=== PATIENT | male | born 1950 | race Caucasian/White ===

== ENCOUNTER 2017-11-01 13:00 | Outpatient (CLI) | payer MEDICARE, OTHER ==
[~2017-11-01 13:00] MED LIST: ALLO300T2 GT; LOSA100T16 PO; NAPR220C11 PO; OMEP-10 PO
== END 2017-11-01 13:35 | disposition home or self-care (01) ==
LOC: SLEEP 13:00
PROVIDERS: ATTEND Nurse Practitioner Family
DX: G47.10 Hypersomnia, unspecified (principal)

== ENCOUNTER 2018-04-21 15:13 | Emergency (ER) | payer OTHER | END 2018-04-21 17:17 | disposition home or self-care (01) | LOC: ER 15:13 ==

== ENCOUNTER → 2018-10-12 | Outpatient (CLI) | payer OTHER | LOC: CARD 07:11 | PROVIDERS: ATTEND Internal Medicine | DX: R07.9 Chest pain, unspecified (principal); R55 Syncope and collapse | CPT/HCPCS: 93017 ==

== ENCOUNTER → 2018-12-21 | Outpatient (CLI) | payer OTHER ==
--- NOTE | 2018-12-21 13:54 | Diagnostic Imaging Report ---
INDICATION: PSVT ARTERIAL DEFIB FAMILY HX SARCOIDOSIS COMPARISON: None. FINDINGS: Frontal and lateral views of the chest demonstrate normal heart size and pulmonary vascularity. The lungs are clear. There are no signs of infiltrate, pleural effusions or pneumothoraces. The visualized osseous structures show no acute abnormalities. IMPRESSION: 1. No acute process. No signs of infiltrates, effusions or pneumothoraces. Dictated by: Dictated on workstation # [id number]
== END ==
LOC: RAD 13:19
PROVIDERS: ATTEND Internal Medicine
DX: I48.91 Unspecified atrial fibrillation (principal); I47.1 Supraventricular tachycardia; Z84.89 Family history of other specified conditions
CPT/HCPCS: 71046

== ENCOUNTER 2021-10-11 19:17 | Emergency (ER) | payer MEDICARE, OTHER ==
[~2021-10-11] VITALS: Ht 187 cm; Wt 97.5 kg
[2021-10-11] MEDS ORDERED: TETANUS,DIPTH,PERTUSS P/F (BOOSTRIX) 0.5 ML VIAL IM ONE (19:45)
--- NOTE | 2021-10-11 19:52 | ED Fall/Injury ---
General Chief Complaint: Trauma-Non Activation Stated Complaint: FALL/L SIDE RIB PAIN/L THIGH PAIN Source: patient, family Exam Limitations: no limitations History of Present Illness Date Seen by Provider: Oct 11, 2021 Time Seen by Provider: 19:30 Initial Comments Here with report to have a fall today while walking his dog. Occurred about an hour ago. States he got tangled up with his dog and then fell onto his left side. States he felt like his arm and elbow pushed into his ribs and has left rib pain. Also has abrasions to left elbow and left knee. He is on Xarelto. Denies hitting his head or loss of consciousness but admits to being heriberto around significantly. Has left hip pain but is able to walk with some pain. States he feels like he has a muscle bruise at the area of the left hip. Denies nausea or vomiting. Denies other injury. Tetanus is not up-to-date Occurred: this evening Severity: moderate Injuries/Pain Location: chest, pelvis Context: tripped Loss of Consciousness: no loss of consciousness Modifying Factors: Worse With Movement; Improves With Rest Associated Symptoms (Fall): No Abdominal Pain, No Chest Pain, No Confusion, No Dizziness, No Headache; Muscle Spasms; No Nausea/Vomiting, No Neck Pain, No Shortness of Air; Other (Pain with deep breathing) Allergies and Home Medications Allergies Coded Allergies: No Known Drug Allergies (Unverified , 12/14/13) Patient Home Medication List Home Medication List Reviewed: Yes Allopurinol (Zyloprim Tablet) 300 Mg Tab, 300 MG GT DAILY, (Reported) Entered as Reported by: JIM GALVAN on 12/14/13 1025 Losartan Potassium (Cozaar) 100 Mg Tablet, 1 EACH PO DAILY, (Reported) Entered as Reported by: JIM GALVAN on 12/14/13 1023 Naproxen Sodium (Aleve) 220 Mg Capsule, 220 MG PO for PAIN, (Reported) Entered as Reported by: JIM GALVAN on 12/14/13 1025 Omeprazole (Prilosec 20 Mg) 20 Mg Capsule.dr, 20 MG PO DAILY, (Reported) Entered as Reported by: JIM GALVAN on 12/14/13 1025 Review of Systems Review of Systems Constitutional: see HPI; No chills, No fever Eyes: No Symptoms Reported Ears, Nose, Mouth, Throat: no symptoms reported Respiratory: No cough, No short of breath; other (Pain with deep breathing and pain to the left side of the chest) Cardiovascular: chest pain (Left chest wall pain); No edema, No palpitations Gastrointestinal: No abdominal pain, No nausea, No vomiting Genitourinary: no symptoms reported Musculoskeletal: joint pain, muscle pain Skin: change in color, lesions Psychiatric/Neurological: Denies Headache, Denies Weakness All Other Systems Reviewed Negative Unless Noted: Yes Past Jgeqjrn-Rfarug-Lebkik Hx Patient Social History Tobacco Use?: No Substance use?: No Alcohol Use?: No Immunizations Up To Date Influenza Vaccine Up-to-Date: Yes; Up-to-Date Past Medical History Surgery/Hospitalization HX: a fib, HTN Surgeries: Yes (HERNIA) Abdominal, Tonsillectomy Respiratory: No Cardiac: Yes Hypertension Neurological: No Gastrointestinal: No Musculoskeletal: Yes (GOUT) Endocrine: No Glaucoma Cancer: No Psychosocial: No Integumentary: No Family Medical History Reviewed Nursing Family Hx No Pertinent Family Hx Physical Exam Vital Signs Vital Signs - First Documented 10/11/21 19:28 Temp 37.0 Pulse 64 Resp 18 B/P (MAP) 158/88 (111) Pulse Ox 98 O2 Delivery Room Air Capillary Refill : Height, Weight, BMI Height: 6'2.00" Weight: 240lbs. oz. 108.480050ki; BMI Method:Stated General Appearance: WD/WN, mild distress HEENT: PERRL/EOMI, TMs normal, pharynx normal Neck: non-tender, full range of motion, supple Cardiovascular: regular rate, rhythm, no murmur Respiratory: lungs clear, normal breath sounds, other (Tender to the left chest wall lateral aspect) Gastrointestinal: non tender, soft Back: normal inspection, no CVA tenderness, no vertebral tenderness Extremities: non-tender, normal inspection Neurologic/Psychiatric: alert, oriented x 3 Skin: normal color, warm/dry [place] Coma Score Best Eye Response: (4) Open Spontaneously Best Verbal Response: (5) Oriented Best Motor Response: (6) Obeys Commands Progress/Results/Core Measures Results/Orders My Orders Orders - NAY STANLEY MD Pelvis With Left Hip 2-3 Views (10/11/21 19:43) Ct Chest Wo (10/11/21 19:43) Ct Head Wo (10/11/21 19:43) Dipht,Pertuss(Acell),Tet Adult (Boostrix (10/11/21 19:45) Medications Given in ED Current Medications Medications Dose Ordered Sig/Iva Route Start Time Stop Time Status Last Admin Dose Admin Diphtheria/ Tetanus/Acell Pertussis 0.5 ml ONCE ONCE IM 10/11/21 19:45 10/11/21 19:46 DC 10/11/21 20:32 0.5 ML Vital Signs/I&O 10/11/21 19:28 Temp 37.0 Pulse 64 Resp 18 B/P (MAP) 158/88 (111) Pulse Ox 98 O2 Delivery Room Air Progress Progress Note : Progress Note Seen and evaluated. We will get CT of the head due to patient being on Xarelto and significant fall. Also get CT of the chest due to left chest wall pain and also on Xarelto. We will get x-ray of the left hip and pelvis. Tetanus to be updated. Patient declined pain medicine. Monitor patient. 2058: X-rays reviewed. Fourth rib fracture noted. CT of the head does not show any acute intracranial hemorrhage and x-ray of left hip and pelvis show no acute fracture. I did discuss with him regarding the rib fracture. We will do incentive spirometer teaching and give him an incentive spirometer. Hydrocodone 5/325 1 tab p.o. ordered. Small cystic structure on kidney discussed with patient. He is to follow-up with Dr. Fuentes for recheck and further evaluation of that and outpatient ultrasound as indicated. He and his both verbalized understanding and I will send a copy of the chart to Dr. Fuentes. Discharged home with return precautions. Patient verbalized understanding of instructions and agreement with plan. Diagnostic Imaging Diagonstic Imaging: CT Plain Films/CT/US/NM/MRI: chest Comments [facility]. [place], [place] NAME: ROSEMARY MABRY MED REC#: [id number] PT STATUS: REG ER : 1950 PHYSICIAN: NAY STANLEY MD ADMIT DATE: 10/11/21/ER Draft Date of Exam:10/11/21 CT CHEST WO INDICATION: Fall with left rib pain. TECHNIQUE: Multiple contiguous axial images were obtained through the chest without the use of intravenous contrast. Auto Exposure Controls were utilized during the CT exam to meet ALARA standards for radiation dose reduction. COMPARISON: There is no prior chest CT for comparison. FINDINGS: There is no enlarged mediastinal or hilar node. There is no mediastinal hematoma. There is no pleural or pericardial fluid. Visualized portions of the upper abdomen demonstrate no acute finding. There is an exophytic lesion off the left kidney which cannot be characterized without contrast, consider elective left renal sonogram. There is a cyst in the left kidney. There is no pneumothorax. The lungs show no evidence of contusion or infiltrate or focal lesion. Bony windows in the chest demonstrate extensive diffuse degenerative changes throughout the thoracic spine. There is a nondisplaced left 4th rib fracture of indeterminate age. IMPRESSION: No pneumothorax or pleural fluid. Nondisplaced left 4th rib fracture of indeterminate age. No other acute process in the chest. There is an exophytic lesion off the left kidney of intermediate density, measuring about 2 cm. Suggest elective sonography for follow-up. Dictated on workstation # [id number] Dict: 10/11/212022 Trans: 10/11/212032 [facility] [id number] Interpreted by: LUISA VERDIN MD Electronically signed by: Leylagonsmaria teresa Imaging: CT Plain Films/CT/US/NM/MRI: head Comments [facility] [place] [place] NAME: ROSEMARY MABRY [facility] REC#: [id number] PT STATUS: REG ER : 1950 PHYSICIAN: NAY STANLEY MD ADMIT DATE: 10/11/21/ER Draft Date of Exam:10/11/21 CT HEAD WO INDICATION: Fall with head injury, patient is on blood thinners. TECHNIQUE: Multiple contiguous axial images were obtained through the brain without the use of intravenous contrast. Auto Exposure Controls were utilized during the CT exam to meet ALARA standards for radiation dose reduction. COMPARISON: There is no prior study for comparison. FINDINGS: There is no extra-axial fluid collection. No intracranial hemorrhage. No intracranial mass or mass effect. There is mild diffuse atrophic change. Ventricles are normal in size and position. There is no acute parenchymal abnormality in the brain. Calvarial windows show no fracture. IMPRESSION: Mild atrophic changes with no acute intracranial abnormality. Dictated on workstation # [id number] Dict: 10/11/212017 Trans: 10/11/212027 [facility] [id number] Interpreted by: LUISA VERDIN MD Electronically signed by: Pranav Imaging: Xray Plain Films/CT/US/NM/MRI: pelvis, hip Comments [facility] [place] [place] NAME: ROSEMARY MABRY [facility] REC#: [id number] PT STATUS: REG ER : 1950 PHYSICIAN: NAY STANLEY MD ADMIT DATE: 10/11/21/ER Draft Date of Exam:10/11/21 PELVIS WITH LEFT HIP 2-3 VIEWS INDICATION: Pelvic pain and left hip pain. EXAMINATION: AP pelvis and AP and oblique views of the left hip were obtained. FINDINGS: No fracture or acute bony abnormality is seen. There are moderate degenerative changes of both hip joints. SI joints appear in good alignment. IMPRESSION: Chronic changes, as above, with no acute abnormality of the pelvis or left hip. Dictated on workstation # [id number] Dict: 10/11/212019 Trans: 10/11/212024 [facility] [id number] Interpreted by: LUISA VERDIN MD Electronically signed by: Departure Impression Primary Impression: Left rib fracture Qualified Codes: S22.32XA - Fracture of one rib, left side, initial encounter for closed fracture Additional Impressions: Abrasion Cyst of left kidney Disposition: HOME, SELF-CARE Condition: Stable Departure-Patient Inst. Decision time for Depature: 21:03 Referrals: JAY FUENTES MD (PCP/Family) Primary Care Physician Patient Instructions: Skin Abrasions, Rib Fracture or Bruised Rib ED Add. Discharge Instructions: All discharge instructions reviewed with patient and/or family. Voiced understanding. Your tetanus was updated today. You do have a rib fracture of the fourth rib on the left. This will cause pain over the next several days to several weeks. This should get better over time. You may splint that area with a blanket or pillow while coughing or deep breathing to decrease pain. Use incentive spirometer up to 10 times per hour while awake to help prevent pneumonia. Follow-up with Dr. Fuentes this week for recheck and further evaluation and to discuss kidney cyst noted on CT scan that outpatient ultrasound was recommended for. He can help assist with setting that up as indicated. For pain control, take medications as directed. If you are not taking the prescribed pain medicine, you may take Tylenol/acetaminophen 1000 mg every 6-8 hours as needed for pain. Do not take both at the same time as they both have acetaminophen in them. Return for worse pain, coughing, fever, breathing problems, weakness, shortness of breath or other concerns as needed. Scripts Hydrocodone Bit/Acetaminophen (HYDROcodone/APAP 5 MG/325 MG TAB) 1 Tab Tab 1 TAB PO Q6H PRN for PAIN-MODERATE (5-7), #12 TAB 0 Refills Prov: NAY STANLEY MD 10/11/21 Copy Copies To 1: JAY FUENTES MD, TIMOTHY D MD Oct 11, 2021 19:52
--- NOTE | 2021-10-11 20:25 | Diagnostic Imaging Report ---
INDICATION: Pelvic pain and left hip pain. EXAMINATION: AP pelvis and AP and oblique views of the left hip were obtained. FINDINGS: No fracture or acute bony abnormality is seen. There are moderate degenerative changes of both hip joints. SI joints appear in good alignment. IMPRESSION: Chronic changes, as above, with no acute abnormality of the pelvis or left hip. Dictated by: Dictated on workstation # [id number]
--- NOTE | 2021-10-11 20:28 | Diagnostic Imaging Report ---
INDICATION: Fall with head injury, patient is on blood thinners. TECHNIQUE: Multiple contiguous axial images were obtained through the brain without the use of intravenous contrast. Auto Exposure Controls were utilized during the CT exam to meet ALARA standards for radiation dose reduction. COMPARISON: There is no prior study for comparison. FINDINGS: There is no extra-axial fluid collection. No intracranial hemorrhage. No intracranial mass or mass effect. There is mild diffuse atrophic change. Ventricles are normal in size and position. There is no acute parenchymal abnormality in the brain. Calvarial windows show no fracture. IMPRESSION: Mild atrophic changes with no acute intracranial abnormality. Dictated by: Dictated on workstation # [id number]
--- NOTE | 2021-10-11 20:35 | Diagnostic Imaging Report ---
INDICATION: Fall with left rib pain. TECHNIQUE: Multiple contiguous axial images were obtained through the chest without the use of intravenous contrast. Auto Exposure Controls were utilized during the CT exam to meet ALARA standards for radiation dose reduction. COMPARISON: There is no prior chest CT for comparison. FINDINGS: There is no enlarged mediastinal or hilar node. There is no mediastinal hematoma. There is no pleural or pericardial fluid. Visualized portions of the upper abdomen demonstrate no acute finding. There is an exophytic lesion off the left kidney which cannot be characterized without contrast, consider elective left renal sonogram. There is a cyst in the left kidney. There is no pneumothorax. The lungs show no evidence of contusion or infiltrate or focal lesion. Bony windows in the chest demonstrate extensive diffuse degenerative changes throughout the thoracic spine. There is a nondisplaced left 4th rib fracture of indeterminate age. IMPRESSION: No pneumothorax or pleural fluid. Nondisplaced left 4th rib fracture of indeterminate age. No other acute process in the chest. There is an exophytic lesion off the left kidney of intermediate density, measuring about 2 cm. Suggest elective sonography for follow-up. Dictated by: Dictated on workstation # [id number]
[2021-10-11] MEDS ORDERED: HYDROcodone/APAP 5 MG/325 MG (LORTAB) TAB PO ONE (21:00)
[2021-10-11] MEDS ORDERED: ACHD5005 PO (21:06)
[2021-10-11 21:22] VITALS: BP 150/86
== END 2021-10-11 21:22 | disposition home or self-care (01) ==
LOC: EDUNIT# 19:17 → ER 19:20
DX: S22.32XA Fracture of one rib, left side, initial encounter for closed fracture (principal); N28.1 Cyst of kidney, acquired; I48.91 Unspecified atrial fibrillation; Z23 Encounter for immunization; Z79.01 Long term (current) use of anticoagulants; W18.30XA Fall on same level, unspecified, initial encounter; Y93.K1 Activity, walking an animal
CPT/HCPCS: 70450; 71250; 90715; 94664

== ENCOUNTER → 2021-10-28 | Outpatient (CLI) | payer MEDICARE, OTHER ==
[~2021-10-28] MED LIST changes: +ACHD5005 PO
--- NOTE | 2021-10-28 10:33 | Diagnostic Imaging Report ---
PROCEDURE: US Renal Bilateral. TECHNIQUE: Multiple real-time grayscale images were obtained over the kidneys in various projections bilaterally. INDICATION: A left renal lesion noted on recent CT chest. The study is performed for further evaluation. Correlation is made with CT chest study from 10/11/2021. Right kidney measures 9.8 x 5.7 x 6.3 cm and the left kidney measures 9.1 x 4.7 x 4.4 cm. Cortical thickness and echogenicity is normal bilaterally. There are no calculi. No hydronephrosis is seen. There are 2 cysts within the left kidney. There is a simple 1.7 x 1.5 x 1.4 cm cyst. There also appears to be a septated cyst measuring 1.6 x 1.6 x 1.5 cm. No internal vascularity is seen. The bladder base is indented by an enlarged prostate. IMPRESSION: 1. Left renal cystic lesions, one of which is thinly septated. No discrete solid renal lesion or abnormal vascularity is identified. 2. Prostatomegaly. Dictated by: Dictated on workstation # [id number]
== END ==
LOC: RAD 08:39
PROVIDERS: ATTEND Internal Medicine
DX: N28.1 Cyst of kidney, acquired (principal); N40.0 Benign prostatic hyperplasia without lower urinary tract symptoms
CPT/HCPCS: 76770